=== PATIENT | female | born 1945 | race Caucasian/White ===

== ENCOUNTER 2025-03-09 14:26 | Emergency (ER) | payer OTHER, SELFPAY ==
--- OUTSIDE RECORDS SUMMARY | 2024-10-09 09:00 | XMS_ITS ---
Author Organization [facility] Address [address] [place] [address] Care Team Providers Care Communications Manager Name Role Phone Nate Johnson MD Primary Care Provider Karissa Fink Unavailable [phone] Allergies Allergen (clinical drug ingredient) Drug/Non Drug Allergy documented on EMR Reaction Allergy Type Onset Date Status Adhesive blister Allergy Active Penicillin near Drug Allergy Activ e Social History Tobacco Use: Social History Observation Description Date Details (start date - stop date) Current Smoker NA - NA Tobacco use other than smoking: Question Answer Notes Are you an other tobacco user? No Tobacco Control (Standard) Question Answer Notes Tobacco use: Current smoker How often do you smoke cigarettes? Every day How many cigarettes a day do you smoke? 5 or les s How soon after you wake up d o you smoke your first cigarette? 6-30 minutes Are you interested in quitting? Thinking about q uitting AUDIT-C (Standard) Question Answer Notes Did you have a drink containing alcohol in the p ast year? No Points 0 Interpretation Negative Encounters Encounter Location Date Provider Diagnosis [facility] [address] [place] [address] 10/09/2024 Karissa Davila Plan Of Treatment No Information Progress Notes * Bessie SINGH MDOB:[birth year] (79 yo F)Acc No.[id number]:10/09/2024 Progress Notes Patient: Bessie SEAY Provider: Denise Davila DPM :1945 A ge:79 Y S ex:Female Date:10/09/2024 Address:[address] [place] [address], [address], [place], [id number] Pcp:Nate Johnson MD Subjective: * Chief Complaints: * * ROS: G eneral/Constitutional: Nausea d enies. V omiting d enies. H loretta Thirst d enies. L oss appetite d enies. C hills d enies. F atigue d enies.?Fever d enies. N ight Sweats d enies. U nexplained weight loss d enies. U nexplained weight gain d enies. H EENTM: Dentures d enies. D izziness d enies. G lasses/contacts d enies. R etinopathy d enies. B lurred/double vision d enies. T MJ?denies. D ischarge/drainage d enies. I mplants d enies. S ore throat d enies. D ental implants d enies. H marily of hearing d enies. D ifficulty chewing/swallowing/speaking d enies. N ose bleeds d enies. S ore mouth d enies. ? R espiratory: On Oxygen d enies. P neumonia/pleurisy d enies.?Bronchitis d enies. E mphysema d enies. C oughing d enies. C ough blood?denies. S hortness of breath d enies. W heezing d enies. C ardiovascular: Pacemaker d enies. M JAVA SOFTWARE ARCHITECT d enies. W PW d enies. C HF d enies. H eart attack d enies. S eptal defect d enies. R apid beat d enies. C hest pain d enies. A trial Fib. d enies. M urmur/Palpitations d enies. G astrointestinal: Hemorrhoids d enies. S tomach/Abdominal pain d enies. D ark blood stool d enies. I rritable bowel d enies. C onstipation d enies. D iarrhea d enies. H ematology: Swelling d enies. C lots d enies. V aricose Veins d enies. B ruising d enies. B leeding problem d enies. G enitourinary: Blood urine d enies. F requent/Painfu/urination/bladder control d enies. K idney stones d enies. I nfection (UTI) d enies. N ephropathy d enies. s ex trans dis (STD) d enies. P rostate d enies. M usculoskeletal: Hammertoes d enies. B unions d enies. B ack Pain d enies. M uscle Cramps/ Resting d enies. M uscle cramps / walking d enies.?Generalized aches and pains d enies. W eakness d enies. I nteg.: Barrow d enies. S cars d enies. C orns/calluses?denies. I ngrown nails d enies. P ainful nails d enies. O pen Sores d enies. R ashes d enies. N eurologic: Difficulty sleeping d enies. B rain disorder d enies. N umbness d enies. B alance trouble d enies. C onfusion d enies. F ainting/blackouts d enies. T ingling d enies. T remors d enies. * Medical History: A nxiety, Arthritis, Back,Hip,and Knee pain, Cancer, Cataracts, Covid-19, Depression, Dementia, Gall bladder problems, High Blood Pressure, Lung disease, Macular degeneration, Psoriasis, Psychiatric disorder, Thyroid, Mumps, Chicken pox. * Surgical History: G all bladder removal . * Family History: M other: , diagnosed with Diabetic - NIDDM, Unspecified heart disease. F ather: , diagnosed with Family history of arthritis. S iblings: diagnosed with Other malignant neoplasm of unspecified site. * Social History: T obacco Use: T obacco use other than smoking A re you an other tobacco user? N o Tobacco Control (Standard) T obacco use: C urrent smoker H ow often do you smoke cigarettes? E very day H ow many cigarettes a day do you smoke? 5 or less H ow soon after you wake up do you smoke your first cigarette? 6 -30 minutes A re you interested in quitting? T hinking about quitting D rugs/Alcohol: D rugs H ave you used drugs other than those for medical reasons in the past 12 months? N o M iscellaneous: C affeine: yes, frequency:. Children: yes, 1. Marital status: . Occupation: Retired. D rug/Alcohol: A ROBERT-C (Standard) D id you have a drink containing alcohol in the past year? N o P oints 0 I nterpretation N egative * Allergies: P enicillin: near - Allergy, Adhesive: blister - Allergy. Objective: * Vitals: Assessment: Plan: * Treatment: * Images: * The named appointment provid er may or may not be the originator of this progress note, and it is not deemed complete until electronically signed by the appointment provider. Sign off status: Pending * Provider: Denise Davila DPM Date: 0 10/09/2024 Generated for Tray Leyva/Kasie on: 1 04:58 PM EDT
--- NOTE | ~2025-03-09 | CT_ITS ---
CLINICAL HISTORY: SBO concern CT abdomen and pelvis without/with contrast Comparison: None provided Findings: Bilateral lung base atelectasis versus scar. Degenerative change spine and bilateral hips. No acute bony abnormality. Liver and spleen within normal limits. Pancreas and adrenal glands unremarkable. Cholecystectomy. No significant focal renal abnormalities. Renal cysts, no stones or hydronephrosis. 3.4 cm infrarenal aortic aneurysm. No free fluid or adenopathy in the pelvis. No diverticulitis. Appendix unremarkable. Calcified fibroid. No adnexal abnormality. Impression: No acute process This document has been electronically signed by: Nestor Ram MD on 03/09/2025 20:15:16
--- NOTE | ~2025-03-09 | XR_ITS ---
EXAMINATION: XR ABDOMEN KUB CLINICAL INDICATION: constipation ?obstruction COMPARISON: None available. TECHNIQUE: AP supine view of the abdomen. FINDINGS: Right upper quadrant clips are consistent with cholecystectomy. There is a surgical clip projecting over the right iliac crest that could be a migrated clip from the gallbladder fossa or other surgical clip. There is scattered large and small bowel gas without small bowel distention. There is mild levoscoliosis and moderate degenerative change. XR/XR KUB IMPRESSION: There is a nonspecific bowel gas pattern. Possible paralytic ileus. Electronically signed by: David Smallwood MD 03/09/2025 03:26 PM EDT
[2025-03-09 14:46] VITALS: BP 168/74; PULSE 70; RESP 16; TEMP 36.6; O2SAT 98; BMI 35.9
--- NOTE | 2025-03-09 14:46 | ED_ITS ---
HPI - General Adult General Chief complaint: Abdominal Pain Stated complaint: Stomach Pain x 3 Days Time Seen by Provider: 03/09/25 16:33 Source: patient, RN notes reviewed and old records reviewed Mode of arrival: ambulatory Limitations: no limitations History of Present Illness ED Provider: Candice Zabala PA-C HPI narrative: 79-year-old female with history of cholecystectomy and presenting to the emergency department today for right lower quadrant pain that is been present for the last 3 days. She is endorsing nausea and small caliber stools. She feels bloated. She reports having a decrease in appetite only having water and crackers over the last 3 days. The last 24 hours the pain in her right lower quadrant and has become more sharp. She denies any blood in her stool. This has never happened to her before in the past she is without any back pain or symptoms. Denies any fevers or chills or sweats. No respiratory symptoms no recent falls or trauma. She reports food has no effect on it onto crackers not making it worse. No rectal pressure no tenesmus. Pain is crampy 5/5. Related Data Previous Rx's ?Medication ?Instructions ?Recorded dicyclomine 10 mg capsule 10 mg PO QID #28 caps simethicone 125 mg tablet 125 mg PO DAILY PRN abdomina l 03/09/25 distention #7 tabs Allergies Allergy/AdvReac Type Severity Reaction Status Date / Time Lactose Allergy Unknown Unknown Uncoded 03/09/25 14:48 Penicillin Allergy Unknown Unknown Uncoded 03/09/25 14:48 Wellbutrin Allergy Unknown Unknown Uncoded 03/09/25 14:48 Review of Systems 2 Review of Systems: Yes all other systems are reviewed and are negative PMFSH Past Medical History Attestation statement: The following information was validated with the patient. Source: old records reviewed and nursing notes reviewed Social History Social History Smoked in Last 30 Days: Yes Use of substances other than those prescribed or required for medical reasons: No Advance Directives: No Advance Directives Information Provided: No Do you have a plan to hurt others: No Plan Physical Exam ED Exam Exam: General: Appears in no acute distress, appears well nourished body habitus is obese, appears stated age. No septic or ill-appearing. Vitals reviewed normal, PMH/Social and Surgical hx reviewed including allergies and current medications. - reviewed for prior visits here Head: Normocephalic, no obvious trauma or skin lesions noted. Eyes: EOMI, sclerae and conjunctiva clear ENMT: dry oral mucosa, upper denture in place Neck: trachea midline no lymphadenopathy Cardiovascular: peripheral perfusion normal, Regular heart rate regular rhythm Respiratory: no respiratory distress, lungs clear to auscultation bilaterally with no chest wall tenderness Abdomen: Obese soft abdomen no guarding hypoactive bowel sounds no rashes No suprapubic or CVA tenderness, no skin lesions. No rigitidity. Extremities: warm and moving without difficulty cap refill less than 3 seconds Psych: Cooperative Neuro: Alert and oriented. Vital Signs: Vital Signs - 24 hr 03/09/25 14:46 03/09/25 17:37 03/09/25 18:45 Temperature 98 F 97.8 F Pulse Rate 70 66 Respiratory Rate 16 17 16 Blood Pressure 168/74 H 167/59 H Pulse Oximetry 98 100 Oxygen Delivery Method Room Air Room Air BMI result Body Mass Index 35.9 Course Course Course Narrative: This is a Rapid Medical Examination (RME) performed by Ezekiel Ness PA-C in triage. Full HPI, ROS, assessment and treatment plan per primary provider in the Main ED. Hx: 79 yo F here for eval of RLQ pain x3 days. assoc nausea, dec appetite. no vomiting or diarrhea. last BM this morning however small amount. passing gas. surgical hx includes cholecystectomy. Plan: labs, UA, KUB Medications Administered Discontinued Medications Generic Name Dose Route Start Last Admin Trade Name Ping PRN Reason Stop Dose Admin Sodium Chloride 1,000 mls @ 999 mls/hr 03/09/25 16:35 03/09/25 18:06 Ns IV 03/09/25 17:35 Infused .Q1H1M ONE Infusion Iohexol 85 ml 03/09/25 19:32 03/09/25 19:32 Iohexol 350 Mg/Ml 100 Ml Infus..Btl IV 03/09/25 19:33 85 ml ONCE ONE Administration Morphine Sulfate 2 mg 03/09/25 17:29 03/09/25 17:37 Morphine Sulfate 4 Mg/Ml Cartridge IVPUSH 03/09/25 17:30 2 mg ONCE ONE Administration Protocol Ondansetron HCl 4 mg 03/09/25 16:36 03/09/25 17:01 Ondansetron Hcl 4 Mg/2 Ml Vial IVPUSH 03/09/25 16:37 4 mg ONCE ONE Administration Medical Decision Making Medical Decision Making [facility] Narrative: 79 year old F presenting to the ED today for evaluation of RLQ abd pain x 3 days. Upon arrival to ED she is afebrile and well appearing.Her RLQ is mildly tender but she is without any peritoneal signs No worse with food or positional changes, no radiation into back and no dizziness or lightheadedness reported, less likely mesenteric ischemia, but given concern of constipation and thin caliber stools, CT abd/pelvis ordered to rule out potentional bowel obstruction. She denies sxs. Abdominal labs and urine ordered. Overall work up and imaging reassuring. No acute process on CT. Mild leukocytosis without shift. No metabolic dysfunction. Slight elevation of lipase, but not 3x ULN and therefore deemed unlikely. She is able to tolerate PO fluids. She has trace leuks in urine but no dysuria, urgency or frequency, this will reflex to cx. No CVA tenderness or flank pain and no stone identified on imaging. Patient?s symptoms not typical for emergent causes of abdominal pain such as, but not limited to, appendicitis, abdominal aortic aneurysm, surgical biliary disease, pancreatitis, SBO, mesenteric ischemia, serious intra-abdominal bacterial illness. Presentation also not typical of gynecologic emergencies such as?TOA, Ovarian Torsion, PID. Not Ectopic. Doubt atypical ACS. Pt tolerating PO. Disposition: Patient will be discharged with strict return precautions and follow up with primary MD within 12-24 hours for further evaluation. Patient understands that this still may have an early presentation of an emergent medical condition such as appendicitis that will require a recheck. Differential Diagnosis Differential Diagnoses: The differential diagnosis associated with the presentation includes See [facility] Admission/Observation Consideration of admission/observation: Escalation of care including admission/observation considered Patient would have been admitted to the hospital had her work up had any findings where hospital admission was appropriate and her clinical presentation warranted hospital admission. Lab Data [facility] Lab Attestation statement: I reviewed the patient's lab results. 03/09/25 16:19 03/09/25 16:19 Labs: Lab Results 03/09/25 Range/Units 16:19 WBC 11.3 H (4.8-10.8) X10*3/uL RBC 4.76 (4.20-5.50) X10*6/uL Hgb 15.0 (12.0-16.0) g/dl Hct 43.9 (37.0-47.0) % MCV 92.2 (80.0-98.0) fL MCH 31.5 (27.0-33.0) pg MCHC 34.2 (31.0-35.0) g/dl RDW 12.9 (11.0-16.0) % Plt Count 281 (160-400) X10*3/uL MPV 9.4 (9.4-12.3) fL Immature Gran % (Auto) 0.2 (0.0-0.4) % Neut % (Auto) 68.2 (45-73) % Lymph % (Auto) 23.4 (20-40) % Concho % (Auto) 7.5 (2-11) % Eos % (Auto) 0.4 (0-4) % Baso % (Auto) 0.3 (0-2) % Lymph # (Auto) 2.6 (1.2-4.9) X10*3/uL Concho # (Auto) 0.9 (0.1-1.2) X10*3/uL Eos # (Auto) 0.0 (0.0-0.4) X10*3/uL Baso # (Auto) 0.0 (0.0-0.2) X10*3/uL Abs Immat Gran (auto) 0.02 (0.00-0.03) X10*3/uL Absolute Neuts (auto) 7.7 (2.0-8.3) x10*3/uL Absolute Nucleated RBC 0.000 (0.0-0.012) X10*3/uL Nucleated RBC % (auto) 0.0 (0.0-0.2) /100WBC Sodium 140 (135-145) mmol/L Potassium 3.7 (3.3-5.1) mmol/L Chloride 100 (96-108) mmol/L Carbon Dioxide 30 H (22-29) mmol/L Anion Gap 14 (12-20) BUN 3 L (9-16) mg/dL Creatinine 0.64 (0.5-1.4) mg/dL Estim Creat Clear Calc 85.3 Estimated GFR > 60 Random Glucose 109 (60-115) mg/dL Calcium 9.7 (8.4-10.2) mg/dL Magnesium 2.0 (1.6-2.6) mg/dL Total Bilirubin 0.5 (0.0-1.0) mg/dL AST 33 H (5-31) U/L ALT 31 (0-31) U/L Alkaline Phosphatase 83 (39-117) U/L Total Protein 7.4 (6.5-8.0) g/dL Albumin 4.4 (3.5-5.0) g/dL Lipase 86 H (8-78) U/L Independent Interpretation I performed an independent interpretation of an: Plain X-Ray and CT Scan Interpretation: no heavy stool burden of SBO on xray or CT Radiology Impression Discussion of test interpretation with radiology: I have reviewed the radiologist's reading. Radiologist Impression: No acute process. Gas filled loops on bowel, but no obstruction, free air, or sig stool burden. Tests considered The following testing was considered but not selected: Would have considered CTA of abd/pelvis had hx been more suggestive of messenteric ischemia and CT w/o contrast alone if kidney stone was ML dx. Prescription Management I considered prescription management with: Pain Medication Chronic Conditions Patient?s care impacted by: Other Social Determinants Patient?s care significantly limited by Social Determinants of Health including: Other Social Determinant of Health Critical Care Time Critical Care Time Critical Care Time: Yes Total Critical Care Time: 35 Attestation: This patient required critical care. Due to the fact that the patient required a significant amount of one on one physician ? patient contact time, ordering and review of studies, arranging urgent treatment with development of a management plan, evaluation of patient?s response to treatment with frequent reassessments, and discussions with other providers this patient required critical care time in excess of 30 minutes. Critical care time was indicated due to the inherent instability and/or potential for instability in this patient. The critical care time that is allocated to this patient is above and beyond any time spent on any other billable procedures performed on this patient. Discharge Plan Discharge Clinical Impression: Abdominal pain Patient Disposition: Home, Self-Care Instructions: Abdominal Pain (ED) Additional Instructions: You were seen in the emergency department today for abdominal pain. You are no longer endorsing any nausea. You had imaging and labs done that showed no life- threatening causes of this. You do have a small amount of gas in your bowel. For this reason we have given you simethicone while here. There is not signficiant stool burden or infection detected today. Should symptoms change or worsen, please return for reevaluation. Recommend slowly advancing your diet Please follow the following diet below as long as tolerable: Stage 1: Clear Liquid Diet (First 1?2 days) This gives your bowel time to rest and reduce inflammation. Allowed: Water Broth (chicken, beef, or vegetable) Clear juices (apple, grape?not orange) Gelatin (no added fruit Ice pops (no chunks or pulp) Tea or coffee (no cream) Avoid: Solid food Milk or dairy (at this stage) Stage 2: Low-Fiber Diet (Once symptoms improve, usually after 1?3 days) This eases the transition back to normal eating while minimizing irritation. Recommended foods: White rice, plain pasta, white bread Cooked or canned vegetables (no seeds or skins) Bananas, applesauce, melon Lean proteins (eggs, skinless chicken, fish) Low-fat dairy (yogurt, milk, cheese?if tolerated) Avoid: Raw fruits and vegetables Whole grains Nuts, seeds, popcorn Legumes (beans, lentils) Tough or fatty meats Stage 3: Gradual Return to High-Fiber Diet (After full recovery) Once symptoms resolve and inflammation clears (typically within a week), fiber is gradually reintroduced to help prevent future attacks. Add slowly: Whole grains (brown rice, oats, whole wheat) Fresh fruits and vegetables (peeled at first) Beans and legumes (in small amounts) Plenty of fluids (to help fiber move through the gut) Tips: Eat smaller meals more frequently during recovery. Avoid alcohol, spicy foods, and caffeine early on?they can irritate the gut. Stay hydrated?water is essential for bowel healing. Should you experience inability to pass urine and 24 hours or no bowel movement in 5 days or worsening abdominal pain please return to the emergency department Prescriptions: New simethicone 125 mg tablet 125 mg PO DAILY PRN (Reason: abdominal distention) Qty: 7 0RF dicyclomine 10 mg capsule 10 mg PO QID Qty: 28 0RF Referrals: Nate Johnson MD [Primary Care Provider, Internal Medicine] Clinical Impression: Abdominal pain Interventions: ED Discharge Assessment Last Done: 03/09/25 21:55 Discharge Date/Time: 03/09/25 21:55 Print Language: Turkmen
[2025-03-09 16:28] LABS: MANUAL DIFF FLAG NO
[2025-03-09 16:30] LABS: Hematocrit 43.9 % (37.0-47.0); Hemoglobin 15.0 g/dl (12.0-16.0); Imm Gran Abs Auto 0.02 X10*3/uL (0.00-0.03); Imm Gran Pct Auto 0.2 % (0.0-0.4); Lymphocytes Absolute Auto 2.6 X10*3/uL (1.2-4.9); Mean Corpuscular HGB Conc 34.2 g/dl (31.0-35.0); Mean Corpuscular Hemoglobin 31.5 pg (27.0-33.0); Mean Corpuscular Volume 92.2 fL (80.0-98.0); NRBC Abs Auto 0.000 X10*3/uL (0.0-0.012); NRBC Pct Auto 0.0 /100WBC (0.0-0.2); Platelet Count 281 X10*3/uL (160-400); Red Blood Count 4.76 X10*6/uL (4.20-5.50); White Blood Count 11.3 X10*3/uL (4.8-10.8)
[2025-03-09 16:43] LABS: Alanine Aminotransferase 31 U/L (0-31); Albumin Level 4.4 g/dL (3.5-5.0); Alkaline Phosphatase 83 U/L (39-117); Anion Gap 14 (12-20); Aspartate Amino Transferase 33 U/L (5-31); Blood Urea Nitrogen 3 mg/dL (9-16); Calcium 9.7 mg/dL (8.4-10.2); Carbon Dioxide 30 mmol/L (22-29); Chloride 100 mmol/L (96-108); Creatinine Clr Calc Pharmacy 85.3; Estimated Glomerular Filt Rate > 60; Lipase 86 U/L (8-78); Magnesium 2.0 mg/dL (1.6-2.6); Potassium 3.7 mmol/L (3.3-5.1); Sodium 140 mmol/L (135-145); Total Protein 7.4 g/dL (6.5-8.0)
--- OUTSIDE RECORDS SUMMARY | 2025-03-09 16:59 | XMS_ITS | Patient Health Record ---
Author Organization [facility] Address [address] [place] [address] Care Team Providers Care Steward Dishwasher Name Role Phone Nate Johnson MD Primary Care Provider Karissa Fink Unavailable [phone] Allergies Allergen (clinical drug ingredient) Drug/Non Drug Allergy documented on EMR Reaction Allergy Type Onset Date Status Adhesive blister Allergy Active Penicillin near Drug Allergy Activ e Reason For Referral No Information Social History Tobacco Use: Social History Observation [...] Negative Encounters Encounter Location Date Provider Diagnosis [facility] [address] [place] [address] 09/27/2024 Karissa Davila Plan Of Treatment No Information Insurance Providers Payer Name Payer Address Payer Phone Subscriber Number Group Number Insured Name Patient Relationship to Insured Coverage Start Date Coverage End Date [employer] [place] [employer] [address] [place] [address] [id number] Bessie Kan Self - patient is the insured Medical (General) History Medical History History ICD Code Anxiety Arthritis Back,Hip,and Knee pain Cancer Cataracts covid-19 Depression Dementia Gall bladder problems High Blood Pressure Lung disease Macular degeneration Psoriasis Psychiatric disorder thyroid Mumps Chicken pox Surgical History Surgery Date(Month/Year) Gall bladder removal
--- OUTSIDE RECORDS SUMMARY | 2025-03-09 16:59 | XMS_ITS | Patient Health Record ---
Author Organization [facility] Address [address] [place] [address] Care Team Providers Care Leader Writer Name Role Phone Belinda (RETIRED) Matt PATRICK Primary Care Provid er Unavailable Miguel Ángel Cazares Jr Unavailable Allergies Allergen (clinical drug ingredient) Drug/Non Drug Allergy documented on EMR Reaction Allergy Type Onset Date Status Penicillin Unknown Drug Allergy Active bee stings (uncoded) Unknown Allergy Active Reason For Referral No Information Medications Medication SIG (Take, Route, Frequency, Duration) Notes Start Date End Date Status Prozac Active Colyte with Flavor Packs 240 GM As directed Orally Over the specified time.; Duration: 1 day(s) 05/13/2016 Active traZODone HCl Active Gabapentin Active Levothyroxine Sodium Active Lisinopril Not-Takin g tylenol prn Active Multivitamin Active Magnesium Active Glucosamine Chondr Complex Active Immunizations Vaccine Route Administration Date Status Comme nts Influenza Unknown 02/08/2016 Administered Problems Problem Type SNOMED Code ICD Code Onset Dates Problem Status W/U Status Risk Notes Problem Colon cancer screening (621768015) Colon cancer screening (Z12.11) Active confirmed Problem Irritable bowel syndrome with diarrhea (943175241) Irritable bowel syndrome with diarrhea (K58.0) Active confirmed Plan Of Treatment Future Test Test Name Order Date COLONOSCOPY 05/13/2016 Insurance Providers Payer Name Payer Address Payer Phone Subscriber Number Group Number Insured Name Patient Relationship to Insured Coverage Start Date Coverage End Date MEDICARE OF [employer]ISSA [employer]QUE[employer] [id number] [place] [id number] NORI BRICE Self - patient is the insured Medical (General) History Medical History History ICD Code breast cancer hypertension depression sleep apnea urinary incontinence neuropathy Surgical History Surgery Date(Month/Year) cholecystectomy 2014 ovarian surgery removed 2014 mastectomy/partial 2012 carpal tunnel release 2016
[2025-03-09 17:37] VITALS: RESP 17
[2025-03-09 18:45] VITALS: BP 167/59; PULSE 66; RESP 16; TEMP 36.6; O2SAT 100
[2025-03-09] MEDS: iohexoL 350 MG/ML 100 ML INFUS..BTL 85 ML IV (19:32)
[2025-03-09 21:48] VITALS: BP 162/71; PULSE 57; RESP 16; TEMP 36.8; O2SAT 99
[2025-03-09 21:55] VITALS: BP 162/71; PULSE 57; RESP 16; TEMP 36.8; O2SAT 99
== END 2025-03-09 21:55 | disposition home or self-care (01) ==
PROVIDERS: Physician Assistant Medical; Emergency Provider Emergency Medicine Emergency Medical Services; PCP Family Medicine
DX: R10.31 Right lower quadrant pain (principal); R11.0 Nausea; Z90.49 Acquired absence of other specified parts of digestive tract
CPT/HCPCS: 36415; 74018; 74170; 80053; 83690; 83735; 85025; 96361; 96374; 96375; 99284; 99285; J2270; J2405; Q9967

== ENCOUNTER → 2025-03-09 14:47 | Outpatient (BNV) | payer MEDICARE, SELFPAY | PROVIDERS: PCP Family Medicine; Visit Provider Radiology Diagnostic Radiology | DX: K56.609 Unspecified intestinal obstruction, unspecified as to partial versus complete obstruction (principal); K59.00 Constipation, unspecified | CPT/HCPCS: 74018 ==